=== PATIENT | male | born 1945 | race African-American/Black ===

== ENCOUNTER → 2019-04-24 | Outpatient (CLI) | payer MEDICARE, OTHER ==
[~2019-04-24] MED LIST: METO25 PO; PERCT10 PO; TAMS0.4C32 PO
[2019-04-24 13:14] LABS: BASOPHILS % (AUTO) 0.5 % (0.0-2.0); EOSINOPHILS % (AUTO) 0.4 % (1.0-6.0); HEMATOCRIT 41.6 % (41-53); HEMOGLOBIN 13.6 g/dL (13.5-17.5); LYMPHOCYTES # (AUTO) 1.3 K/uL (1.0-4.8); LYMPHOCYTES % (AUTO) 17.3 % (22.0-44.0); MEAN CORPUSCULAR HGB CONC 32.7 G/dL (31.0-37.0); MEAN CORPUSCULAR VOLUME 92 fL (80-100); MONOCYTES # (AUTO) 0.5 K/uL (0.1-1.0); MONOCYTES % (AUTO) 7.3 % (2.0-9.0); NEUTROPHILS # (AUTO) 5.5 K/uL (1.8-7.7); NEUTROPHILS % (AUTO) 74.5 % (40.0-70.0); PLATELET COUNT (AUTO) 246 K/uL (150-450); RED BLOOD CELL COUNT(AUTO) 4.54 MIL/uL (4.50-5.90); RED CELL DISTRIBUTION WIDTH 15.3 % (11.5-14.5)
[2019-04-24 13:25] LABS: HEMOGLOBIN A1C 5.1 % (4.5-6.2)
[2019-04-24 13:32] LABS: ALANINE AMINOTRANSFERASE 20 U/L (12-78); ALBUMIN 3.8 g/dL (3.4-5.0); ALKALINE PHOSPHATASE 74 U/L (46-116); ANION GAP 11 mmol/L (8-16); ASPARTATE AMINOTRANSFERASE 25 U/L (15-37); CALCIUM, TOTAL 9.6 mg/dL (8.8-10.5); CARBON DIOXIDE 25 mmol/L (22-29); CHLORIDE 104 mmol/L (98-107); CHOL/HDL RATIO 2.3 (4.2-7.3); CHOLESTEROL 193 mg/dL (131-200); CREATININE 1.32 mg/dL (0.60-1.30); GLUCOSE,RANDOM 86 mg/dL (70-110); HDL CHOLESTEROL 83 mg/dL (40-60); LDL CHOL (CALC.) 96 mg/dL (0-130); POTASSIUM 4.1 mmol/L (3.5-5.1); SODIUM SERUM 140 mmol/L (136-145); TRIGLYCERIDES 70 mg/dL (15-150); UREA NITROGEN, BLOOD 14 mg/dL (7-18)
[2019-04-24 13:37] LABS: GLOMERULAR FILTR. RATE CALC > 60 mL/min (>60)
[2019-04-24 14:00] LABS: PROSTATE SPECIFIC ANTIGEN 2.94 ng/mL (0.00-4.00)
[2019-04-24 14:27] LABS: ERYTHROCYTE SEDIMENTATION RATE 10 MM/HR (0-15)
== END | disposition home or self-care (01) ==
LOC: LABPV 12:33
PROVIDERS: ATTEND Hospitalist
DX: I10 Essential (primary) hypertension (principal); N40.0 Benign prostatic hyperplasia without lower urinary tract symptoms; I25.2 Old myocardial infarction; R79.89 Other specified abnormal findings of blood chemistry
CPT/HCPCS: 83036; 84153; 85651